=== PATIENT | male | born 1945 | race Caucasian/White ===

== ENCOUNTER → 2017-03-26 | Outpatient (CLI) | payer MEDICARE ==
--- NOTE | 2017-03-26 14:24 | EKG ---
Date Performed: 03/26/2017 Time Performed: 09:24:44 PTAGE: 71 years EKG: Sinus rhythm . Right bundle branch block Possible inferior infarct - age undetermined Abnormal ECG NO PREVIOUS TRACING DOCTOR: Laura Wall Interpretating Date/Time 03/26/2017 14:22:33
== END ==
LOC: HCAV 09:10
PROVIDERS: ATTEND Ophthalmology
DX: Z01.810 Encounter for preprocedural cardiovascular examination (principal)
CPT/HCPCS: 93005